=== PATIENT | male | born 1945 | race Hispanic/Latino ===

== ENCOUNTER 2016-08-28 06:46 | Emergency (ER) | payer MEDICARE, MEDICAID ==
[~2016-08-28] VITALS: Ht 170.2 cm; Wt 70.0 kg
[~2016-08-28 06:46] MED LIST: CIPROFLOXACN500 MG PO; DILAUDID 2MG2 MG/TA1 PO; MIRALAX3350 NF OR; MOTRIN800 MG PO; NEXIUM40 M1 PO; NO; NO HOME MEDS; ULTRAM50 M1 PO
[2016-08-28 08:09] LABS: URINE BILIRUBIN - DIPSTICK NEGATIVE (NEGATIVE); URINE BLOOD DIPSTICK MODERATE (NEGATIVE); URINE COLOR YELLOW; URINE GLUCOSE - DIPSTICK NEGATIVE (NEGATIVE); URINE KETONE NEGATIVE (NEGATIVE); URINE NITRITE - DIPSTICK NEGATIVE (Negative); URINE PROTEIN - DIPSTICK NEGATIVE (NEG-TRACE); URINE UROBILINOGEN - DIPSTICK 0.2 E.U./dL (0.2)
[2016-08-28 08:10] LABS: URINE CLARITY CLOUDY; URINE LEUK ESTERASE LARGE (NEGATIVE)
[2016-08-28 08:15] LABS: HEMATOCRIT 41.7 % (39.0-50.0); HEMOGLOBIN 14.2 g/dl (14.0-18.0); IMMATURE GRANULOCYTES 0.4 % (0.0-1.0); MEAN CELL VOLUME 86.5 fL CALC (80.0-100.0); MEAN CORPUSCULAR HGB 29.5 pG CALC (26.0-32.0); MEAN CORPUSCULAR HGB CONC 34.1 g/L CALC (32.0-36.0); NEUT# 9.79 thou/uL (1.82-7.42); RED BLOOD COUNT 4.82 mill/uL (4.70-6.10); RED CELL DISTRI WIDTH 12.8 % (11.5-15.5)
[2016-08-28 08:16] LABS: URINE RBC 25-50 RBC/hpf (0-5)
[2016-08-28 08:17] LABS: URINE BACTERIA FEW hpf; URINE SQUAMOUS EPITHELIAL CELL FEW EPI/hpf (0-FEW); URINE WBC TNTC WBC/hpf (0-5)
[2016-08-28 08:26] LABS: ALBUMIN 4.3 g/dL (3.2-5.0); ALKALINE PHOSPHATASE 67 u/l (38-126); ANION GAP 15 (6-22 (CALC)); BUN 15 mg/dL (8-23); BUN/CREATININE RATIO 19 (12-20 (CALC)); CARBON DIOXIDE 27 mmol/l (22-30); CHLORIDE 104 mmol/l (95-108); CREATININE 0.8 mg/dL (0.7-1.3); GFR > 60 ML/MIN (>=60 (CALC)); GFR FOR AFR.AMER. > 60 ML/MIN (>=60 (CALC)); GLUCOSE 120 mg/dL (82-115); POTASSIUM 3.4 mmol/l (3.5-5.1); SGOT/AST 27 u/l (19-48); SGPT/ALT 29 u/l (11-66); SODIUM 142 mmol/l (137-146); TOTAL PROTEIN 7.6 g/dL (6.3-8.2)
[2016-08-28] MEDS ORDERED: CIPROFLOXACN500 MG PO (09:22)
[2016-08-28] MEDS ORDERED: FLOMAX0.4 M1 PO (09:22)
[2016-08-28 09:41] VITALS: BP 133/76
--- NOTE | 2016-08-29 13:42 | NUR ---
CULTURE RESULT CALLED INTO 'S OFFICE ON 08/29/2016
== END 2016-08-28 09:45 | disposition home or self-care (01) ==
LOC: ED 06:46
PROVIDERS: Emergency Medicine
DX: N39.0 Urinary tract infection, site not specified (principal); R33.9 Retention of urine, unspecified; B96.20 Unspecified Escherichia coli [E. coli] as the cause of diseases classified elsewhere

== ENCOUNTER 2016-08-30 10:15 | Emergency (ER) | payer MEDICARE, MEDICAID ==
[~2016-08-30] VITALS: Ht 170.2 cm; Wt 80.0 kg
[~2016-08-30 10:15] MED LIST changes: +FLOMAX0.4 M1 PO
[2016-08-30 10:40] VITALS: BP 133/84
== END 2016-08-30 10:50 | disposition home or self-care (01) ==
LOC: ED 10:15
DX: Z46.6 Encounter for fitting and adjustment of urinary device (principal); R33.9 Retention of urine, unspecified

== ENCOUNTER 2017-07-20 07:45 | Emergency (ER) | payer MEDICARE ==
[~2017-07-20] VITALS: Ht 170.2 cm; Wt 90.0 kg
[2017-07-20] MEDS ORDERED: NAPROSYN500 MG PO (09:05)
[2017-07-20 09:35] VITALS: BP 149/84
== END 2017-07-20 09:35 | disposition home or self-care (01) ==
LOC: ED 07:45
DX: M17.11 Unilateral primary osteoarthritis, right knee (principal)